=== PATIENT | female | born 1940 | race Caucasian/White ===

== ENCOUNTER 2024-02-19 20:01 | Inpatient (IN) | payer OTHER ==
[~2024-02-19] VITALS: Ht 160 cm; Wt 78.5 kg
[2024-02-19] MEDS ORDERED: VALS320T2 PO (20:45)
[2024-02-19] MEDS ORDERED: FURO20TA4 PO (20:45)
[2024-02-19] MEDS ORDERED: ASPI-1420 PO (20:45)
[2024-02-19] MEDS ORDERED: HYDR-3972 PO (20:45)
[2024-02-19] MEDS ORDERED: GLUC1TAB65 PO (20:45)
[2024-02-19] MEDS ORDERED: IBUP-1957 PO (20:45)
[2024-02-19] MEDS ORDERED: AMLO-212 PO (20:45)
[2024-02-19] MEDS ORDERED: LEVO50TA8 PO (20:45)
[2024-02-19] MEDS ORDERED: IBUP-1490 PO (20:45)
[2024-02-19] MEDS ORDERED: ACET325T53 PO (20:45)
[2024-02-19] MEDS ORDERED: CEPH500T PO (20:45)
[2024-02-19] MEDS ORDERED: ATOR40TA PO (20:45)
[2024-02-19 21:13] LABS: BASOPHILS # (AUTO) 0.1 K/UL (0.0-0.2); BASOPHILS % (AUTO) 0.9 % (0.0-2.0); EOSINOPHILS # (AUTO) 0.2 K/uL (0.0-0.7); LYMPHOCYTES # (AUTO) 1.6 K/uL (0.8-4.8); MONOCYTES # (AUTO) 0.8 K/uL (0.1-1.30); RED BLOOD CELL COUNT(AUTO) 3.93 MIL/uL (3.63-4.92)
[2024-02-19 21:17] LABS: *BILIRUBIN,URIN NEGATIVE (NEGATIVE); *CLARITY,URINE CLEAR (CLEAR); *COLOR,URINE YELLOW (YELLOW); *KETONES,URINE TRACE (NEGATIVE); *PROTEIN,URINE NEGATIVE (NEGATIVE); *UROBILINOGEN,URINE 0.2 E.U./dl (NORMAL); LEUKOCYTE ESTERASE ,URINE 1+ (NEGATIVE); NITRITE, URINE NEGATIVE (NEGATIVE); PH,URINE 5.5 (5.0-8.0); UGLUCOSE NEGATIVE (NEGATIVE)
[2024-02-19 21:20] LABS: *BLOOD, URINE NEGATIVE (NEGATIVE)
[2024-02-19 21:21] LABS: RBC,URINE 0-3 /HPF (0-3)
[2024-02-19 21:22] LABS: EOSINOPHILS % (AUTO) 1.6 % (0.0-7.0); HEMATOCRIT 34.5 % (31.2-41.9); HEMOGLOBIN 11.8 g/dL (10.9-14.3); LYMPHOCYTES % (AUTO) 12.7 % (20.5-51.5); MEAN CORPUSCULAR HGB CONC 34 g/dL (32.3-35.6); MEAN CORPUSCULAR VOLUME 87.8 fL (75.5-95.3); MONOCYTES % (AUTO) 6.4 % (0.0-11.0); NEUTROPHILS # (AUTO) 9.6 K/uL (1.8-8.9); NEUTROPHILS % (AUTO) 78.4 % (38.5-71.5); PLATELET COUNT (AUTO) 265 K/uL (179-408); WHITE BLOOD COUNT (AUTO) 12.2 K/uL (3.8-11.8)
[2024-02-19 21:23] LABS: DIFFERENTIAL COMMENT 1
[2024-02-19 21:31] LABS: CALCIUM 8.6 mg/dL (8.5-10.1); CARBON DIOXIDE 24 mmol/L (21-32); CHLORIDE 109 mmol/L (98-107); CREATININE 1.3 mg/dL (0.6-1.3); GLUCOSE 100 mg/dL (74-106); POTASSIUM 3.7 mmol/L (3.5-5.1); SODIUM SERUM 144 mmol/L (136-145); UREA NITROGEN, BLOOD 26 mg/dL (7-18)
[2024-02-19 21:36] LABS: ETHANOL < 3 MG/DL (0-10)
[2024-02-19 21:42] LABS: ALANINE AMINOTRANSFERASE 28 U/L (14-59); ALBUMIN 3.3 g/dL (3.4-5.0); ALKALINE PHOSPHATASE 72 U/L (50-136); ASPARTATE AMINOTRANSFERASE 24 U/L (15-37); BILIRUBIN,DIRECT 0.1 mg/dL (0.0-0.2); BILIRUBIN,TOTAL 0.8 mg/dL (0.2-1.0)
[2024-02-19] MEDS ORDERED: ACETAMINOPHEN ES 500 MG TABLET ONE (22:19)
[2024-02-19] MEDS ORDERED: TRAMADOL HCL 50 MG TABLET ONE (22:20)
[2024-02-19] MEDS ORDERED: ONDANSETRON ODT 4 MG TAB.RAPDIS ONE (22:20)
[2024-02-19] MEDS: ACETAMINOPHEN ES 500 MG TABLET PO ONE (22:21)
[2024-02-19] MEDS: ONDANSETRON ODT 4 MG TAB.RAPDIS SL ONE (22:21)
[2024-02-19] MEDS: TRAMADOL HCL 50 MG TABLET PO ONE (22:28)
[2024-02-19] MEDS ORDERED: ONDANSETRON 4 MG/2 ML VIAL IV PRN (22:30)
[2024-02-20] MEDS ORDERED: CEFTRIAXONE /D5W 50ML IVPB **ER PYXIS IV ONE (02:01)
[2024-02-20] MEDS: CEFTRIAXONE 1 G in IV DEXTROSE 5% 50 ML IV ONE (02:13)
[2024-02-20 03:44] VITALS: BP 155/64; TEMP 98.2; O2SAT 96
[2024-02-20 06:54] LABS: BASOPHILS # (AUTO) 0.1 K/UL (0.0-0.2); BASOPHILS % (AUTO) 0.9 % (0.0-2.0); EOSINOPHILS # (AUTO) 0.3 K/uL (0.0-0.7); EOSINOPHILS % (AUTO) 3.1 % (0.0-7.0); HEMATOCRIT 30.7 % (31.2-41.9); HEMOGLOBIN 10.2 g/dL (10.9-14.3); LYMPHOCYTES # (AUTO) 1.5 K/uL (0.8-4.8); LYMPHOCYTES % (AUTO) 17.2 % (20.5-51.5); MEAN CORPUSCULAR HEMOGLOBIN 29.1 uug (24.7-32.8); MEAN CORPUSCULAR HGB CONC 33 g/dL (32.3-35.6); MEAN CORPUSCULAR VOLUME 87.8 fL (75.5-95.3); MONOCYTES # (AUTO) 0.7 K/uL (0.1-1.30); MONOCYTES % (AUTO) 8.4 % (0.0-11.0); NEUTROPHILS % (AUTO) 70.4 % (38.5-71.5); PLATELET COUNT (AUTO) 242 K/uL (179-408); RED BLOOD CELL COUNT(AUTO) 3.49 MIL/uL (3.63-4.92); RED CELL DISTRIBUTION WIDTH 14.3 % (12.3-17.7); WHITE BLOOD COUNT (AUTO) 8.6 K/uL (3.8-11.8)
[2024-02-20 07:28] LABS: ALANINE AMINOTRANSFERASE 20 U/L (14-59); ALBUMIN 2.8 g/dL (3.4-5.0); ALKALINE PHOSPHATASE 66 U/L (50-136); ASPARTATE AMINOTRANSFERASE 11 U/L (15-37); BILIRUBIN,TOTAL 0.5 mg/dL (0.2-1.0); CALCIUM 8.3 mg/dL (8.5-10.1); CARBON DIOXIDE 24 mmol/L (21-32); CHLORIDE 112 mmol/L (98-107); CREATININE 1.1 mg/dL (0.6-1.3); GLUCOSE 92 mg/dL (74-106); PHOSPHOROUS 4.5 mg/dL (2.5-4.9); POTASSIUM 4.3 mmol/L (3.5-5.1); SODIUM SERUM 146 mmol/L (136-145); TOTAL PROTEIN, SERUM 6.2 g/dL (6.4-8.2); UREA NITROGEN, BLOOD 23 mg/dL (7-18)
[2024-02-20 07:38] LABS: DIFFERENTIAL COMMENT 1
[2024-02-20] MEDS: MORPHINE SULFATE 2 MG/1 ML DISP.SYRIN IVP PRN (08:14)
[2024-02-20] MEDS: ASPIRIN EC 81 MG TABLET.DR PO SCH (09:51)
[2024-02-20] MEDS: FUROSEMIDE 20 MG TABLET PO SCH (09:51)
[2024-02-20] MEDS: LEVOTHYROXINE SODIUM 50 MCG TABLET PO SCH (09:53)
[2024-02-20] MEDS: AMLODIPINE 5 MG TABLET PO SCH (09:53)
[2024-02-20] MEDS: VALSARTAN 160 MG TABLET PO SCH (09:54)
[2024-02-20] MEDS: HEPARIN SODIUM,PORCINE 5,000 UNITS/ML VIAL SQ SCH (09:55)
[2024-02-20 11:18] VITALS: BP 146/61; TEMP 97.5; O2SAT 94
[2024-02-20 16:02] VITALS: BP 151/56; TEMP 98; O2SAT 96
[2024-02-20] MEDS: ATORVASTATIN 40 MG TABLET PO SCH (17:42)
[2024-02-20 19:45] VITALS: BP 144/62; TEMP 98.4; O2SAT 95
[2024-02-21] MEDS: hydrALAZINE HCL 20 MG/1 ML VIAL IV PRN (04:56)
[2024-02-21 05:20] VITALS: BP 167/68; TEMP 98.4; O2SAT 97
[2024-02-21 07:41] LABS: BASOPHILS # (AUTO) 0.1 K/UL (0.0-0.2); BASOPHILS % (AUTO) 0.9 % (0.0-2.0); EOSINOPHILS # (AUTO) 0.4 K/uL (0.0-0.7); EOSINOPHILS % (AUTO) 4.6 % (0.0-7.0); HEMATOCRIT 30.4 % (31.2-41.9); HEMOGLOBIN 10.3 g/dL (10.9-14.3); LYMPHOCYTES # (AUTO) 1.7 K/uL (0.8-4.8); LYMPHOCYTES % (AUTO) 21.6 % (20.5-51.5); MEAN CORPUSCULAR HEMOGLOBIN 29.6 uug (24.7-32.8); MEAN CORPUSCULAR HGB CONC 34 g/dL (32.3-35.6); MEAN CORPUSCULAR VOLUME 87.1 fL (75.5-95.3); MONOCYTES # (AUTO) 0.7 K/uL (0.1-1.30); MONOCYTES % (AUTO) 8.1 % (0.0-11.0); NEUTROPHILS # (AUTO) 5.2 K/uL (1.8-8.9); NEUTROPHILS % (AUTO) 64.8 % (38.5-71.5); PLATELET COUNT (AUTO) 270 K/uL (179-408); RED CELL DISTRIBUTION WIDTH 13.9 % (12.3-17.7); WHITE BLOOD COUNT (AUTO) 8.1 K/uL (3.8-11.8)
[2024-02-21 07:48] LABS: DIFFERENTIAL COMMENT 1
[2024-02-21 07:56] LABS: IRON, SERUM 37 ug/dL (50-175)
[2024-02-21 08:00] VITALS: BP 130/52; TEMP 98.1; O2SAT 100
[2024-02-21 08:23] LABS: ALANINE AMINOTRANSFERASE 23 U/L (14-59); ALBUMIN 2.8 g/dL (3.4-5.0); ALKALINE PHOSPHATASE 59 U/L (50-136); ASPARTATE AMINOTRANSFERASE 16 U/L (15-37); BILIRUBIN,TOTAL 0.4 mg/dL (0.2-1.0); CALCIUM 8.2 mg/dL (8.5-10.1); CARBON DIOXIDE 26 mmol/L (21-32); CHLORIDE 109 mmol/L (98-107); CHOLESTEROL 136 mg/dL (<200); CREATININE 1.2 mg/dL (0.6-1.3); GLUCOSE 92 mg/dL (74-106); HDL CHOLESTEROL 60 mg/dL (40-60); PHOSPHOROUS 3.5 mg/dL (2.5-4.9); POTASSIUM 3.9 mmol/L (3.5-5.1); SODIUM SERUM 142 mmol/L (136-145); TOTAL PROTEIN, SERUM 6.1 g/dL (6.4-8.2); TRIGLYCERIDES 77 MG/DL (30-150); UREA NITROGEN, BLOOD 29 mg/dL (7-18)
[2024-02-21] MEDS: ACETAMINOPHEN 325 MG TABLET PO PRN (08:40)
[2024-02-21 12:00] VITALS: BP 129/49; TEMP 97.6; O2SAT 98
[2024-02-21] MEDS ORDERED: CEPH500C2 PO (15:46)
[2024-02-21] MEDS ORDERED: ATOR20TA PO (15:46)
[2024-02-21] MEDS ORDERED: CYAN10006 IM (15:46)
[2024-02-21 16:00] VITALS: BP 126/47; TEMP 98.3; O2SAT 97
[2024-02-21] MEDS: CYANOCOBALAMIN 1000 MCG/ML VIAL IM SCH (16:15)
== END 2024-02-21 18:30 | DRG 551 ==
LOC: ER 20:04 → MEDSURG3 22:25
PROVIDERS: ADMIT Internal Medicine; ATTEND Internal Medicine
DX: S32.10XA Unspecified fracture of sacrum, initial encounter for closed fracture (principal); N17.0 Acute kidney failure with tubular necrosis; N39.0 Urinary tract infection, site not specified; R29.6 Repeated falls; I44.7 Left bundle-branch block, unspecified; W18.30XA Fall on same level, unspecified, initial encounter; Z91.81 History of falling; Y92.099 Unspecified place in other non-institutional residence as the place of occurrence of the external cause; E66.9 Obesity, unspecified; Z68.30 Body mass index [BMI] 30.0-30.9, adult; Z87.891 Personal history of nicotine dependence; E78.5 Hyperlipidemia, unspecified; E03.9 Hypothyroidism, unspecified; D51.3 Other dietary vitamin B12 deficiency anemia; D50.9 Iron deficiency anemia, unspecified; M81.0 Age-related osteoporosis without current pathological fracture; F03.90 Unspecified dementia, unspecified severity, without behavioral disturbance, psychotic disturbance, mood disturbance, and anxiety; Z90.49 Acquired absence of other specified parts of digestive tract; M15.9 Polyosteoarthritis, unspecified; Z85.9 Personal history of malignant neoplasm, unspecified; G93.89 Other specified disorders of brain; Z79.899 Other long term (current) drug therapy; Z79.890 Hormone replacement therapy; Z79.82 Long term (current) use of aspirin; I11.0 Hypertensive heart disease with heart failure; I50.9 Heart failure, unspecified
CPT/HCPCS: 36415; 70450; 71045; 73501; 83550; 83735; 84100; 84443; 85025; 93005; A4663; A9150; G0378; G0480; J0360; J0696; J1644; J2270; J3420; Q0162